=== PATIENT | female | born 1985 | race Caucasian/White ===

== ENCOUNTER 2020-06-18 07:18 | Outpatient (CLI) | payer BC, SELFPAY ==
[2020-06-18 07:33] LABS: Basophils Absolute Auto 0.04 K/mm3 (0.00-0.10); Basophils Percent Auto 0.5 % (0.0-1.0); Eosinophils Absolute Auto 0.09 K/mm3 (0.02-0.50); Eosinophils Percent Auto 1.1 % (1.0-6.0); Hematocrit 36.1 % (35.0-49.0); Hemoglobin 11.6 g/dL (12.0-15.0); Immature Granulocyte Absolute 0.03 K/mm3 (0.00-0.00); Immature Granulocyte Percent A 0.4 % (0.0-0.0); Lymphocytes Absolute Auto 2.44 K/mm3 (1.10-4.50); Lymphocytes Percent Auto 29.2 % (18.0-42.0); Mean Corpuscular HGB Conc 32.1 g/dL (32.0-36.0); Mean Corpuscular Hemoglobin 28.1 pg (27.0-31.0); Mean Corpuscular Volume 87.4 fL (78.0-102.0); Mean Platelet Volume 8.8 fl (9.2-11.8); Monocytes Absolute Auto 0.44 K/mm3 (0.10-0.90); Monocytes Percent Auto 5.3 % (2.0-11.0); Neutrophils Absolute Auto 5.3 K/mm3 (1.7-7.2); Neutrophils Percent Auto 63.5 % (50.0-70.0); Platelet Count Result 235 K/mm3 (150-420); Red Blood Count 4.13 M/mm3 (4.20-5.40); Red Cell Distribution Width 12.6 % (11.6-14.4); White Blood Count 8.4 K/mm3 (4.8-10.8)
[2020-06-18 09:10] LABS: Alanine Aminotransferase 17 U/L (14-59); Albumin Level 4.1 g/dL (3.4-5.0); Alkaline Phosphatase 73 U/L (46-116); Anion Gap 8 mmol/L (8-16); Aspartate Amino Transferase 11 U/L (15-37); Bilirubin,Total 0.3 mg/dL (0.00-1.00); Blood Urea Nitrogen 16 mg/dL (7-18); Carbon Dioxide 27 mmol/L (21-32); Chloride 104 mmol/L (98-108); Estimated Glomerular Filt Rate > 60; Ferritin 11 ng/mL (8-252); Folic Acid 9.7 ng/mL (8.6->20); Glucose 112 mg/dL (70-99); Iron 40 ug/dL (50-170); Osmolality Calculated 290 mOsm/kg (285-295); Potassium 3.5 mmol/L (3.5-5.1); Sodium 139 mmol/L (136-145); Total Protein 7.3 g/dL (6.4-8.2); Vitamin B12 460 pg/mL (193-986)
[2020-06-18 09:34] LABS: Thyroid Stimulating Hormone Reflex 2.49 u/IU/mL (0.36-3.74)
[2020-06-22 10:32] LABS: Vitamin B1 13 nmol/L (8-30)
[2020-06-22 12:28] LABS: Vitamin D 25 Hydroxy 31 ng/mL (30-100)
== END 2020-06-18 07:19 | disposition home or self-care (01) ==
LOC: CHSLAB 07:24
PROVIDERS: PCP Family Medicine
DX: R63.4 Abnormal weight loss (principal); R53.83 Other fatigue; L65.9 Nonscarring hair loss, unspecified; D64.9 Anemia, unspecified; K91.2 Postsurgical malabsorption, not elsewhere classified; Z98.84 Bariatric surgery status
CPT/HCPCS: 36415; 80053; 82306; 82607; 82728; 82746; 83540; 84425; 84443; 85025

== ENCOUNTER 2020-12-08 12:59 | Emergency (ER) | payer BC, SELFPAY ==
--- NOTE | ~2020-12-08 | CT_ITS ---
EXAMINATION: CT abdomen pelvis wo con DATE: 12/08/2020 16:37 INDICATION: Right flank pain, hematuria. Diarrhea, chills. TECHNIQUE: Computed tomography (CT) of the abdomen and pelvis was performed without intravenous contr ast. Automated exposure control and iterative reconstruction technique were employed. Exam dose: 255 .69 mGy-cm total exam DLP. COMPARISON: None. FINDINGS: The lung bases are clear of infiltrate or consolidation. Normal heart size. No pericardial or pleural effusion. Postoperative change of the stomach. Status post cholecystectomy. No hepatic, splenic, pancreatic, and adrenal or renal space-occupying mass lesion is evident on this limited noncontrast examination. No bile duct or pancreatic duct dilatation. No urinary tract calculus or hydroureteronephrosis is evident. Retroverted uterus. The urinary bladde r, uterus and adnexal areas are otherwise unremarkable. Normal caliber of the abdominal aorta. No intraperitoneal or retroperitoneal or pelvic mass lesion or adenopathy or ascites. Small fat-containing umbilical hernia. No bowel obstruction, bowel wall thickening, pneumatosis or intraperitoneal free air is detected. No inflammatory changes or abscess are identified. Included skeletal structures are unremarkable. IMPRESSION: Postoperative change of the stomach Status post cholecystectomy No urinary tract calculus or hydroureteronephrosis is detected Reviewed, dictated and finalized at [facility]. Reviewed, dictated and finalized at [facility]. [employer]
--- NOTE | ~2020-12-08 | XR_ITS ---
EXAMINATION: XR chest 2V DATE: 12/08/2020 14:26 INDICATION: Rest pain, tightness, fever and vomiting TECHNIQUE: frontal and lateral views of the chest were obtained. COMPARISON: Chest radiograph dated 04/14/2020 FINDINGS: The lungs remain clear with no focal airspace opacities, pulmonary edema, pleural effusion or pneumot horax. The cardiomediastinal silhouette is normal. Cholecystectomy clips in the right upper quadrant. Mild thoracic spondylosis. IMPRESSION: 1. No acute cardiopulmonary disease. Reviewed, dictated and finalized at [facility]. [facility] SPEAKING COACH
[2020-12-08 13:22] VITALS: BP 108/66; PULSE 103; RESP 18; TEMP 37.7; O2SAT 100
[2020-12-08 14:14] LABS: Basophils Absolute Auto 0.01 K/mm3 (0.00-0.10); Basophils Percent Auto 0.2 % (0.0-1.0); Hematocrit 34.7 % (35.0-49.0); Hemoglobin 11.6 g/dL (12.0-15.0); Immature Granulocyte Absolute 0.05 K/mm3 (0.00-0.00); Lymphocytes Absolute Auto 0.56 K/mm3 (1.10-4.50); Mean Corpuscular HGB Conc 33.4 g/dL (32.0-36.0); Mean Corpuscular Hemoglobin 28.9 pg (27.0-31.0); Mean Corpuscular Volume 86.5 fL (78.0-102.0); Mean Platelet Volume 9.3 fl (9.2-11.8); Monocytes Absolute Auto 0.23 K/mm3 (0.10-0.90); Monocytes Percent Auto 4.5 % (2.0-11.0); Neutrophils Absolute Auto 4.2 K/mm3 (1.7-7.2); Neutrophils Percent Auto 83.3 % (50.0-70.0); Platelet Count Result 133 K/mm3 (150-420); Red Blood Count 4.01 M/mm3 (4.20-5.40); Red Cell Distribution Width 13.6 % (11.6-14.4); White Blood Count 5.1 K/mm3 (4.8-10.8)
[2020-12-08 14:29] LABS: INR 1.1; Partial Thromboplastin Time 30.8 SEC (23.90-30.70); Prothrombin Time 11.4 Seconds (9.50-12.10)
[2020-12-08] MEDS: ONDANSETRON INJ 4 MG/2 ML VIAL IV PUSH (14:29)
[2020-12-08 14:30] VITALS: BP 110/64; PULSE 97; RESP 13; O2SAT 99
[2020-12-08] MEDS: SODIUM CHLORIDE 0.9% IV 1,000 ML 999 ML IV CONT (14:30)
[2020-12-08 14:35] LABS: Lactic Acid Reflex 1.4 mmol/L (0.4-2.0)
[2020-12-08 14:38] LABS: Alanine Aminotransferase 30 U/L (14-59); Albumin Level 3.3 g/dL (3.4-5.0); Alkaline Phosphatase 81 U/L (46-116); Anion Gap 10 mmol/L (8-16); Aspartate Amino Transferase 34 U/L (15-37); Bilirubin,Total 0.5 mg/dL (0.00-1.00); Blood Urea Nitrogen 12 mg/dL (7-18); Calcium 8.5 mg/dL (8.5-10.1); Carbon Dioxide 27 mmol/L (21-32); Chloride 99 mmol/L (98-108); Estimated Glomerular Filt Rate > 60; Glucose 99 mg/dL (70-99); Lipase 93 U/L (73-393); Osmolality Calculated 281 mOsm/kg (285-295); Potassium 4.1 mmol/L (3.5-5.1); Sodium 136 mmol/L (136-145); Total Protein 6.9 g/dL (6.4-8.2)
[2020-12-08 15:39] LABS: Add Urine Microscopic? YES; Appearance Urine Clear (Clear); Bilirubin Urine 2+ (Negative); Blood Urine 2+ (Negative); Color Urine Yellow (Yellow); Glucose Urine UA Negative (Negative); Ketones Urine 3+ (Negative); Leukocyte Esterase Ur Negative LEU/UL (Negative); Nitrate Urine Negative (Negative); Protein Urine 1+ (Negative); Specific Grav Ur 1.025 (1.010-1.020)
[2020-12-08 15:45] LABS: Bacteria Urine 4+ /hpf; Mucus Urine Moderate /lpf; Squamous Epithelial Cell Urine Few /hpf (Few); WBC Urine 0-3 /hpf (0-3)
[2020-12-08 15:48] VITALS: BP 122/72; PULSE 89; RESP 15; O2SAT 98
--- NOTE | 2020-12-08 16:12 | PC.NURSE ---
DR. BERMUDEZ CONTACTED AND SPOKE WITH ERP
--- NOTE | 2020-12-08 16:17 | ED.GENADULT ---
HPI - General Adult General Chief complaint: Unspecified Stated complaint: Body aches Time Seen by Provider: 12/08/20 13:45 Source: patient Limitations: no limitations History of Present Illness HPI narrative: 35-year-old woman comes in today complaining of fever, body aches, diarrhea, nausea, lightheadedness and weakness over the last 5 days. Patient states that 5 days ago she had an in office endometrial ablation. Her primary care doctor did a SARS screen and influenza screen yesterday, both of which were negative. an RNA test is pending. She denies cough, cold symptoms, vomiting, dysuria, hematuria or blood in her stools. She states that she has had some epigastric and chest pain as well as some right-sided abdominal pain. Her mother has a history of urolithiasis. She also states that she fell several days ago after her daughter knocked her over in sledding accident. Onset (ago): day(s) (5) Location: chest, back, abdomen, upper extremity and lower extremity Radiation: non-radiation Severity: moderate Quality: aching Pain Consistency: constant Relieving factors: none Exacerbating factors: movement Associated symptoms: diaphoresis, fever/chills, headaches, loss of appetite, malaise and weakness Related Data Home Medications Medication Instructions Recorded Confirmed fluoxetine 40 mg PO DAILY 12/08/20 12/08/20 Allergies Allergy/AdvReac Type Severity Reaction Status Date / Time No Known Allergies Allergy Unverified 06/28/11 14:19 Review of Systems Constitutional: Constitutional: Reports body ache(s), Reports chills, Reports fatigue, Reports fever(s), Reports headache(s), Reports lethargy and Reports malaise Eyes: Eyes: Denies change in vision and Denies photophobia ENT: Denies nasal congestion, Denies nasal discharge and Reports sore throat ( In the last day or so) Cardiovascular: Cardiovascular: Reports chest pain, Reports rapid heart rate and Denies leg edema Respiratory: Respiratory: Denies cough and Denies dyspnea Gastrointestinal: Gastrointestinal: Reports abdominal pain, Reports diarrhea, Reports nausea and Denies vomiting Genitourinary: Genitourinary: Denies hematuria, Denies nocturia, Denies dysuria and Denies urinary urgency Comments: dark colored vaginal bleeding since procedure 5 days ago. Musculoskeletal: Musculoskeletal: Reports back pain, Reports myalgias, Denies arthralgias and Denies joint swelling Integumentary/Breasts: Skin/Breast: Denies change in pigmentation, Denies erythema and Denies rash Neurologic: Denies syncope and Denies focal weakness Hematologic/Lymphatic: Hematologic/Lymphatic: Denies easy bleeding and Denies easy bruising Allergic/Immunologic: Allergic/Immunologic: Denies urticaria and Denies lip swelling [facility] Surgical History Surgical History History of endometrial ablation Social History Social History (Updated 12/08/20 @ 16:25 by Job Mukherjee MD) Smoking status: Never smoker Substance use: never Living arrangements: with family Exam Const: General: cooperative, healthy appearing, alert, awake, Physically active and acute distress moderate Orientation/consciousness: patient oriented x3 Limitations: no limitations HENMT: Head: normocephalic and atraumatic Ears: external ears normal, TM's normal bilaterally and EAC's normal General nose exam: Normal nares present Face and sinus: normal facial exam Mouth: Yes Normal oral and palatal mucosa present Throat: posterior oropharynx normal Eyes: Conjunctivae: conjunctivae normal Pupils: Equal, round and reactive pupils present EOM: EOMs intact bilaterally Resp: Effort & Inspection: normal respiratory effort Auscultation: clear to auscultation bilaterally, no rales, no rhonchi and no wheezes Cardio: Rate: regular rate Rhythm: regular rhythm Heart sounds: no murmurs GI: GI Palp: Yes abdominal tenderness (Diffuse, mild. R>L) Auscultation
[2020-12-08 16:18] LABS: Pregnancy On Board Control Positive; Urine Pregnancy Test Negative
[2020-12-08 17:00] VITALS: BP 106/61; PULSE 91; RESP 14; TEMP 37.7; O2SAT 100
== END 2020-12-08 17:13 | disposition home or self-care (01) ==
PROVIDERS: Emergency Provider Emergency Medicine; PCP Nurse Practitioner Psychiatric/Mental Health
DX: B34.9 Viral infection, unspecified (principal); Z90.49 Acquired absence of other specified parts of digestive tract; Z98.890 Other specified postprocedural states
CPT/HCPCS: 36415; 71046; 74176; 80053; 81001; 81025; 83605; 83690; 85025; 85610; 85730; 86140; 87040; 87077; 87186; 96361; 96374; 99283; 99284; J2405; J7030

== ENCOUNTER 2020-12-11 20:03 | Emergency (ER) | payer BC, SELFPAY ==
[2020-12-11] VITALS (11 sets, daily range): BP systolic 102–128; BP diastolic 72–86; PULSE 81; RESP 16; TEMP 36.7; O2SAT 98–100
--- NOTE | 2020-12-11 20:27 | ED.RECABL ---
HPI - Recheck/Abnormal Lab/Rx General Chief Complaint: Recheck/Abnormal Lab/Rx Stated Complaint: revisit Time Seen by Provider: 12/11/20 20:27 Source: patient Mode of arrival: ambulatory Limitations: no limitations History of Present Illness HPI narrative: 35-year-old woman returns to the emergency department today because of abnormal blood cultures. Patient was seen 3 days ago for fever, abdominal pain and vomiting that started approximately 4 days after endometrial ablation. Blood cultures grew E coli from both bottles. Patient states that she had some low-grade fevers yesterday but has gradually been feeling better since her visit 3 days ago. She still has some night sweats and episodes of dizziness but has had no vomiting and has been eating and drinking well. She complains of persistent pain in her right side. complaint: abnormal lab Initial visit (ago): day(s) (3) Initial visit for: other Returns today for: called because of abnormal lab/test Symptoms since prior visit: no new symptoms and improved Context: called for positive culture result Associated symptoms: chills, nausea and abdominal pain Treatments prior to arrival: other (NSAID) Related Data Home Medications Medication Instructions Recorded Confirmed fluoxetine 40 mg PO DAILY 12/08/20 12/11/20 Allergies Allergy/AdvReac Type Severity Reaction Status Date / Time No Known Allergies Allergy Unverified 06/28/11 14:19 Review of Systems Constitutional: Constitutional: Reports chills, Denies fever(s) and Denies weakness ENT: Denies nasal congestion and Denies sore throat Cardiovascular: Cardiovascular: Denies chest pain and Denies radiating jaw, neck or arm pain Respiratory: Respiratory: Denies cough and Denies dyspnea Gastrointestinal: Gastrointestinal: Reports abdominal pain, Denies diarrhea, Reports nausea and Denies vomiting Genitourinary: Genitourinary: Denies hematuria, Denies nocturia and Denies dysuria Musculoskeletal: Musculoskeletal: Denies arthralgias and Denies joint swelling Integumentary/Breasts: Skin/Breast: Denies pruritus, Denies erythema and Denies rash Neurologic: Reports dizziness and Denies syncope [facility] Surgical History Surgical History History of endometrial ablation Social History Social History Smoking status: Never smoker Substance use: never Exam Const: General: healthy appearing, no acute distress and alert Orientation/consciousness: patient oriented x3 HENMT: Face and sinus: normal facial exam Mouth: Yes moist mucous membranes Throat: posterior oropharynx normal Eyes: Conjunctivae: conjunctivae normal EOM: EOMs intact bilaterally Resp: Effort & Inspection: normal respiratory effort and not labored Auscultation: clear to auscultation bilaterally, no rales, no rhonchi and no wheezes Cardio: Rate: regular rate Rhythm: regular rhythm Heart sounds: no murmurs GI: GI Palp: Yes Soft to palpation and Yes Tenderness to palpation present (GI) ( right flank) Skin: General skin exam: normal color, no jaundice and no pallor Rashes: no rashes Neuro: General: patient oriented x3, moves all extremities, no focal motor deficits and CN's II-XI intact bilaterally Speech: normal speech Gait exam (Neuro): Normal gait present Extrem: General: normal to inspection and no clubbing, cyanosis or edema Psych: Appearance: grossly normal and well kempt Mental Status: mental status grossly normal Affect: normal affect Attitude: cooperative Thought content: Yes Normal thought content present Course Vital Signs Vital signs: Vital Signs Temperature 36.7 C 12/11/20 20:03 Pulse Rate 81 12/11/20 20:03 Respiratory Rate 16 12/11/20 20:03 Blood Pressure 128/86 12/11/20 20:03 Pulse Oximetry 100 12/11/20 20:03 Temperature 36.7 C 12/11/20 20:03 Pulse Rate 81 12/11/20 20:03 Respirat
[2020-12-11 21:35] LABS: Hematocrit 32.3 % (35.0-49.0); Hemoglobin 10.5 g/dL (12.0-15.0); Mean Corpuscular HGB Conc 32.5 g/dL (32.0-36.0); Mean Corpuscular Hemoglobin 28.1 pg (27.0-31.0); Mean Corpuscular Volume 86.4 fL (78.0-102.0); Mean Platelet Volume 9.7 fl (9.2-11.8); Platelet Count Result 230 K/mm3 (150-420); Red Blood Count 3.74 M/mm3 (4.20-5.40); Red Cell Distribution Width 13.5 % (11.6-14.4); White Blood Count 6.9 K/mm3 (4.8-10.8)
[2020-12-11 21:43] LABS: Alanine Aminotransferase 34 U/L (14-59); Albumin Level 3.2 g/dL (3.4-5.0); Alkaline Phosphatase 76 U/L (46-116); Anion Gap 6 mmol/L (8-16); Aspartate Amino Transferase 35 U/L (15-37); Bilirubin,Total 0.3 mg/dL (0.00-1.00); Blood Urea Nitrogen 11 mg/dL (7-18); Calcium 8.5 mg/dL (8.5-10.1); Carbon Dioxide 29 mmol/L (21-32); Chloride 102 mmol/L (98-108); Estimated CRCL calculation 122 ml/min; Estimated Glomerular Filt Rate > 60; Glucose 86 mg/dL (70-99); Osmolality Calculated 282 mOsm/kg (285-295); Sodium 137 mmol/L (136-145); Total Protein 6.7 g/dL (6.4-8.2)
[2020-12-11 21:48] LABS: Lactic Acid Reflex 0.7 mmol/L (0.4-2.0)
[2020-12-11] MEDS: CIPROFLOXACIN 500 MG TAB PO (22:15)
[2020-12-11 22:40] LABS: Atypical Lymphocytes Present
[2020-12-11 22:41] LABS: Band Neutrophils Percent 0 % (0-6); Basophils Percent Manual 0 % (0-1); Eosinophils Absolute Manual 0.13 K/mm3 (0.02-0.5); Eosinophils Percent Manual 2 % (1-6); Lymphocytes Absolute Manual 3.17 K/mm3 (1.1-4.5); Lymphocytes Percent Manual 46 % (18-44); Monocytes Percent Manual 3 % (3-9); Neutrophils Absolute Manual 3.38 K/mm3 (1.7-7.2); Neutrophils Percent Manual 49 % (46-73); Platelet Estimate Adequate (Adequate)
[2020-12-11 22:42] LABS: Total Cells Counted 100
== END 2020-12-11 22:20 | disposition home or self-care (01) ==
PROVIDERS: Emergency Provider Emergency Medicine; PCP Nurse Practitioner Psychiatric/Mental Health
DX: N12 Tubulo-interstitial nephritis, not specified as acute or chronic (principal); A49.8 Other bacterial infections of unspecified site; R78.81 Bacteremia
CPT/HCPCS: 36415; 80053; 83605; 85025; 87040; 87086; 87088; 99283; A9270

== ENCOUNTER 2021-11-09 11:10 | Outpatient (CLI) | payer BC, SELFPAY ==
[2021-11-09 11:56] LABS: SARS-CoV-2 Ag Positive (Negative)
== END 2021-11-09 11:11 | disposition home or self-care (01) ==
LOC: CHSLAB 11:13
PROVIDERS: PCP Family Medicine; Visit Provider Physician Assistant
DX: U07.1 COVID-19 (principal); G44.83 Primary cough headache
CPT/HCPCS: 87426; C9803

== ENCOUNTER 2023-07-26 13:21 | Outpatient (CLI) | payer OTHER, SELFPAY | END 2023-07-26 13:22 | disposition home or self-care (01) | LOC: ANHSURGERY 13:31 | PROVIDERS: Visit Provider Obstetrics & Gynecology | DX: N94.6 Dysmenorrhea, unspecified (principal); Z01.818 Encounter for other preprocedural examination | CPT/HCPCS: 36415; 86850; 86900; 86901 ==

== ENCOUNTER 2023-08-01 01:44 | Day surgery (SDC) | payer OTHER, SELFPAY ==
[2023-07-19 14:23] VITALS: BMI 28.0
--- NOTE | 2023-07-19 14:30 | PC.NURSE ---
Report to the Outpatient Waiting Room, entrance under the green pavilion located off [facility], at time _1000_ on date _[id number]_. Planned Procedure Time: _1200_. Time changes happen often and if your time is changed the preop area will call you the afternoon before. - You and your visitor will be asked to self-screen and do not enter if you have any COVID symptoms. - A mask is optional within the hospital at this time. Patients may have clear liquids (water, carbonated beverages, clear teas, apple juice) until 3 hours prior to surgery with a maximum of 20 ounces. - No food from midnight until time of surgery Take the following medications with a SIP of water the morning of surgery: ___Celexa DO NOT STOP ANY OF YOUR OTHER PRESCRIPTION MEDICATIONS PRIOR TO SURGERY ?EXCEPT THE FOLLOWING Medications to discontinue per physician _Ismael, take no more until after surgery. Multivitamin stop 12-27-2022. Please no make-up, nail sao tomean, hairspray, perfume, deodorant, or body powder the day of surgery. No jewelry (including any body piercings) or valuables the day of surgery, leave them at home. Please take a shower or bath the night before, or the morning of, surgery with an antibacterial soap. Wear comfortable, loose fitting clothing. - Jewelry must be removed prior to entering the operating room. Rings and piercings that are not removed may be cut off. - The hospital will not accept responsibility for valuables. - Please leave all valuables, including medications, at home the day of surgery. If you are going home after surgery, a licensed otr refrigerated cdl truck driver must drive you home. - NO public transportation without another adult if you receive anesthesia. - We recommend that an adult stay with you for 24 hours following discharge. - We also recommend that you do not drive, make important decision, drink alcoholic beverages, or take any drugs that were not prescribed by your health care provider for at least 24 hours after your discharge time. Follow any additional instructions given to you from your surgeon. If you or anyone in your household have experienced Covid symptoms in the past week, please notify your surgeon or the nurse liaison at the phone number below for possible testing. Telephone instructions given to _Patient__and asked if any additional questions and then verbalized understanding. Patient advised to call surgeon office or pre surgery nurse liaison [phone] if any additional questions.
[2023-08-01] VITALS (9 sets, daily range): BP systolic 97–115; BP diastolic 53–76; PULSE 73–97; RESP 14–20; TEMP 36.1–36.5; O2SAT 95–100
[2023-08-01] MEDS: KETOROLAC 15 MG/ML VIAL (*BKC) IV PUSH (10:30)
[2023-08-01] MEDS: ACETAMINOPHEN 500 MG TABLET 1000 MG PO (10:30)
[2023-08-01] MEDS: LACTATED RINGERS 1,000 ML 30 ML IV CONT ×2 (10:30→13:19)
--- NOTE | 2023-08-01 10:57 | P.PNAN_ITS ---
Anes - Initial Pre Proc Eval Procedure: Operation Date: 08/01/23 12:00 Proposed Procedures p Total Vaginal Hysterectomy with Bilateral Salpingectomy - Ted Avalos MD Date/Time: 08/01/23 10:57 Surgeon: Ted Avalos MD Pre Op Diagnosis: dysmenorrhea, dyspurenia, fibroids,heavy bleeding Patient Data Age: 38 Gender: F Height: 1.65 m Weight: 76.4 kg Allergies Allergy/AdvReac Type Severity Reaction Status Date / Time No Known Allergies Allergy Verified 08/01/23 10:46 Home Medications Medication Instructions Recorded Confirmed Type citalopram 20 mg tablet (Celexa) 20 mg PO DAILY 07/19/23 08/01/23 History multivitamin 1 tablet PO DAILY 07/19/23 08/01/23 History omeprazole 40 mg capsule,delayed 40 mg PO DAILY 07/19/23 08/01/23 History release semaglutide (weight loss) 2.4 2.4 mg subcut WEEKLY 07/19/23 07/19/23 History mg/0.75 mL subcutaneous pen injector (Wegovy) Patient hx anesthesia problems: none Family hx anesthesia problems: none Results Review: All pre-operative results and documents have been reviewed as part of the pre- operative evaluation. [facility] Past Medical History Medical History (Updated 08/01/23 @ 10:58 by Ramon Roe MD) Esophageal stricture Gastritis GERD (gastroesophageal reflux disease) Surgical History Surgical History (Updated 08/01/23 @ 10:58 by Ramon Roe MD) History of endometrial ablation S/P gastric sleeve procedure Social History Social History Smoking status: Never smoker Substance use: never Living arrangements: with family Spiritual care concerns: No Anes - Eval Final PreProcedure Day of Procedure 08/01/23 10:57 Patient weight: overweight Heart: regular rate and rhythm Lungs: clear to auscultation Airway: Mallampati scale class II Neurological: alert and oriented Last oral intake: >/= 8 hours ASA classification: II Emergent: no Anesthetic plan: proceed Anesthesia type and monitoring: general ETT and standard monitoring Results Review: All pre-operative results and documents have been reviewed as part of the pre- operative evaluation. Informed Consent: The patient's anesthetic plan and its attendant risks and benefits were discussed with the patient/family/POA. Questions were solicited and answers provided to the satisfaction of the patient/family/POA.
[2023-08-01] MEDS: SCOPOLAMINE 1.5 MG PATCH TRANSDERM (11:00)
--- NOTE | 2023-08-01 11:57 | PM.IMHP ---
H&P: HPI History of Present Illness Date/Time: 08/01/23 11:57 Chief Complaint: Heavy, painful periods. Narrative: 37 y/o who has had an endometrial ablation, but menses are now lasting 7-10 days each, with heavy flow. She is here for definitive management with hysterectomy. Review of Systems Review of Systems: All systems reviewed & are unremarkable except as noted in HPI and below PMFSH Past Medical History Medical History Esophageal stricture Gastritis GERD (gastroesophageal reflux disease) Surgical History Surgical History History of endometrial ablation S/P gastric sleeve procedure Social History Social History Smoking status: Never smoker Substance use: never Living arrangements: with family Spiritual care concerns: No Meds Home Medications and Allergies Home Medications Medication Instructions Recorded Confirmed Type citalopram 20 mg tablet (Celexa) 20 mg PO DAILY 07/19/23 08/01/23 History multivitamin 1 tablet PO DAILY 07/19/23 08/01/23 History omeprazole 40 mg capsule,delayed 40 mg PO DAILY 07/19/23 08/01/23 History release semaglutide (weight loss) 2.4 2.4 mg subcut WEEKLY 07/19/23 07/19/23 History mg/0.75 mL subcutaneous pen injector (Wegovy) Allergies Allergy/AdvReac Type Severity Reaction Status Date / Time No Known Allergies Allergy Verified 08/01/23 10:46 Vital Signs Vital Signs - 24 hr 08/01/23 10:48 Temperature 36.3 C L Pulse Rate 73 Respiratory Rate 16 Blood Pressure 115/76 Pulse Oximetry 100 Oxygen Delivery Room Air Exam Const: Orientation/consciousness: patient oriented x3 Other: Well-developed, well-nourished female in no acute distress. Neck: Thyroid: thyroid normal Lymphatic: no lymphadenopathy noted (in neck, axilla or inguinal nodes) Resp: Effort & Inspection: normal respiratory effort Auscultation: clear to auscultation bilaterally Cardio: Rate: regular rate Rhythm: regular rhythm Heart sounds: S1 normal heart sound present and S2 normal heart sound present GI: Other: ABD: Soft, nontender, nondistended. No guarding or rebound tenderness. No hepatosplenomegaly. : General: Yes no CVA tenderness Other: External genitalia: normal female hair distribution, without lesion. Urethral meatus: no lesion, non prolapsed. Bladder: no mass, nontender Vagina: well-estrogenized, without lesion or discharge. No cystocele or rectocele. Cervix: no lesion or discharge. Uterus: small, anteverted, freely mobile, nontender Adnexa: no mass or tenderness. Anus/perineum: no lesions, nontender Back/Spine/Pelvis: Back: no CVA tenderness Skin: General skin exam: normal color and no rashes or lesions noted Neuro: General: patient oriented x3 Extrem: Other: Extremities: nontender with no edema Psych: Mental Status: mental status grossly normal Affect: normal affect Assessment and Plan Assessment and plan (1) Menometrorrhagia: Code(s): N92.1 - Excessive and frequent menstruation with irregular cycle Status: Acute Assessment and Plan: A: Menometrorrhagia with dysmenorrhea. P: We have reviewed medical as well as surgical management options. She prefers the latter. Specifically, I have offered her a total vaginal hysterectomy with bilateral salpingectomies. She understands hysterectomy will render her permanently sterile. She understands risks of surgery to include risks of anesthesia, risks of pain, infection, bleeding, blood products, thromboembolic phenomena and damage to adjacent structures such as bowel, bladder, ureters, blood vessels and nerves. She understands all these risks and elects to proceed with surgery. (2) Dysmenorrhea: Code(s): N94.6 - Dysmenorrhea, unspecified Status: Acute
--- NOTE | 2023-08-01 12:01 | WPDHPUPDATE1 ---
History and Physical Update Update Date/Time: 08/01/23 12:01 History and Physical has been reviewed, including an updated exam of the patient. There are NO changes in the patient's condition. Risks, benefits, and alternatives have been discussed and questions answered. Patient agrees to proceed with procedure.
[2023-08-01] MEDS: ceFAZolin 2 GM/D5W 50 ML 2 GM/50 ML BAG IVPB (12:04)
--- NOTE | 2023-08-01 13:08 | P.OP_ITS ---
Procedure Note - Detailed Date of Procedure 08/01/23 Pre-op Diagnosis Menometrorrhagia Dysmenorrhea Post-op Diagnosis Same Procedure Performed Total vaginal hysterectomy with bilateral salpingectomies Surgeon Ted Avalos MD Anesthesia General Findings Normal-appearing uterus, tubes and ovaries Description of Procedure The patient was taken to the operating room where she was prepared and draped in the usual sterile fashion in the dorsal lithotomy position. The bladder was drained with red rubber catheter. A weighted speculum was placed posteriorly. A Mary retractor was used anteriorly. The cervix was grasped with a single- tooth tenaculum. Ten mL of sterile saline was infiltrated circumferentially around the cervix to aid in tissue plane dissection. The cervix was circumscribed using electrocautery. The peritoneal cavity was entered sharply posteriorly and a long weighted speculum was placed. The uterosacral and cardinal ligaments on both sides were then clamped, transected and suture ligated using 0 Vicryl. These were tagged for later identification. The bladder was dissected off the cervix and lower uterine segment and reflected away. The LigaSure device was then used to clamp, ligate and transect the broad ligaments bilaterally. Finally, the utero-ovarian ligament, round ligament and tube complexes on both sides were able to be clamped, transected and suture ligated using 0 Vicryl. The specimen was passed off to be sent to pathology. The bilateral fallopian tubes were then dissected, clamped, ligated and transected using the LigaSure device and passed off the field. The pedicles were inspected and found to be hemostatic. The vaginal cuff angles were then transfixed to the ipsilateral cardinal uterosacral ligaments for support. The vaginal cuff was reapproximated using 0 Vicryl in a running, locked fashion. Hemostasis was excellent. A Ceja catheter was placed. Vaginal packing soaked in Premarin cream was placed. Sponge, lap, needle and instrument counts were correct. The patient was awakened and taken to the recovery room in stable condition. I was present and scrubbed for the entire procedure. Implants None Estimated Blood Loss 50 Drains Yes (Ceja) Packing Yes (vaginal) Pathology Yes (Uterus, cervix, bilateral Fallopian tubes) Complications None Condition Stable Disposition PACU
[2023-08-01] MEDS: fentaNYL CITRATE INJ (*CRX) 100 MCG/2 ML VIAL 25 MCG IV PUSH ×8 (13:29→14:13)
--- NOTE | 2023-08-01 14:30 | PC.NURSE ---
This patient, Gena Smith, was received from PACU on 08/01/23 at 1430. Patient/family oriented to unit policies and routines.
[2023-08-01] MEDS: DEXTROSE 5%/0.45% SOD CHL 1,000 ML 125 ML IV CONT (14:57)
[2023-08-01] MEDS: KETOROLAC 30 MG/ML VIAL (*BKC) IV PUSH ×2 (14:57→21:45)
[2023-08-01] MEDS: HYDROcodone/acetaminophen (*CRX) 5-325 MG TABLET 1 TAB PO (16:00)
[2023-08-01] MEDS: HYDROcodone/acetaminophen (*CRX) 10-325 MG TABLET 1 TAB PO ×2 (18:38→21:45)
[2023-08-01] MEDS: DOCUSATE SODIUM 100 MG CAPSULE PO (18:43)
[2023-08-01] MEDS: ENOXAPARIN 40 MG/0.4 ML SYRINGE SUB-Q (21:46)
[2023-08-02 03:30] VITALS: BP 86/56; PULSE 91; RESP 16; TEMP 36.3
[2023-08-02] MEDS: HYDROcodone/acetaminophen (*CRX) 5-325 MG TABLET 1 TAB PO (03:33)
[2023-08-02 05:17] LABS: Basophils Percent Auto 0.2 % (0.2-1.2); Eosinophils Percent Auto 0.1 % (0-4.4); Hematocrit 35.1 % (37.0-47.0); Hemoglobin 11.2 g/dL (12.0-15.0); Immature Granulocyte Absolute 0.06 K/mm3 (0.00-0.031); Immature Granulocyte Percent A 0.4 % (0-0.5); Lymphocytes Absolute Auto 2.09 K/mm3 (0.9-3.2); Mean Corpuscular HGB Conc 31.9 g/dl (32-36); Mean Corpuscular Hemoglobin 29.7 pg (26-34); Mean Corpuscular Volume 93.1 fl (80-100); Mean Platelet Volume 9.8 fl (7.4-10.4); Monocytes Absolute Auto 0.8 K/mm3 (0.1-0.6); Monocytes Percent Auto 5.8 % (2.6-8.5); Neutrophils Absolute Auto 10.9 K/mm3 (1.3-6.7); Neutrophils Percent Auto 78.5 % (45.5-73.1); Platelet Count Result 267 k/mm3 (150-375); Red Blood Count 3.77 M/mm3 (4.2-5.4); Red Cell Distribution Width 12.3 % (11.5-14.5); White Blood Count 13.9 K/mm3 (4.5-10.0)
[2023-08-02] MEDS: HYDROcodone/acetaminophen (*CRX) 10-325 MG TABLET 1 TAB PO (07:36)
[2023-08-02] MEDS: DOCUSATE SODIUM 100 MG CAPSULE PO (07:38)
[2023-08-02 08:35] VITALS: BP 95/56; PULSE 80; RESP 16; TEMP 36.9; O2SAT 98
--- NOTE | 2023-08-02 11:42 | PM.GYNPNOP ---
INSTITUTION DIRECTOR - A/P Assessment and plan (1) Dysmenorrhea: Code(s): N94.6 - Dysmenorrhea, unspecified Status: Acute Assessment and Plan: A: POD#1, doing well. P: Home to f/u 2 weeks. (2) Menometrorrhagia: Code(s): N92.1 - Excessive and frequent menstruation with irregular cycle Status: Acute Postoperative Procedures: Procedures Operation Date: 08/01/23 12:00 Actual Procedure Side Surgeon p Total Vaginal Hysterectomy with Bilateral Salpingectomy Bilateral Ted Avalos MD Time Spent With Patient Time: Total time spent is greater than 50% in coordination of care (as documented) at patient's floor/unit and/or counseling patient: Time with patient: less than 15 minutes INSTITUTION DIRECTOR- PN:Subj Post-Op Subjective Date/time seen: 08/02/23 11:42 Interval history: Pain OK. Tolerating diet. Voiding. Would like to go home. Exam Narrative: AVSS I/O OK ABD soft, nontender. Incisions c/d/i. EXT nontender INSTITUTION DIRECTOR - PN: Obj Data Vital Signs Vital Signs: Vital Signs - 24 hr 08/01/23 13:19 08/01/23 13:45 08/01/23 13:55 Temperature 36.2 C L Pulse Rate 97 89 Respiratory Rate 20 18 Blood Pressure 97/53 L 105/62 Pulse Oximetry 100 100 Oxygen Delivery Simple Face Mask Simple Face Mask Room Air Oxygen Flow Rate 6 6 08/01/23 14:00 08/01/23 14:15 08/01/23 14:25 Temperature 36.1 C L Pulse Rate 86 92 90 Respiratory Rate 16 16 14 Blood Pressure 99/61 L 103/65 98/58 L Pulse Oximetry 96 95 97 Oxygen Delivery Room Air Room Air Room Air Oxygen Flow Rate 08/01/23 13:30 08/01/23 14:35 08/01/23 20:00 Temperature 36.5 C 36.4 C L Pulse Rate 89 89 86 Respiratory Rate 20 16 18 Blood Pressure 103/65 115/65 105/60 Pulse Oximetry 100 99 Oxygen Delivery Simple Face Mask Oxygen Flow Rate 6 08/02/23 03:30 08/02/23 08:35 Temperature 36.3 C L 36.9 C Pulse Rate 91 80 Respiratory Rate 16 16 Blood Pressure 86/56 L 95/56 L Pulse Oximetry 98 Oxygen Delivery Oxygen Flow Rate Intake/Output Intake/Output: Intake & Output 07/30/23 07/31/23 08/01/23 08/02/23 23:59 23:59 23:59 23:59 Intake Total 2425 250 Output Total 340 1100 Balance 3207 -347 Meds/Results Medications: Active Medications Generic Name Dose Route Start Last Admin Trade Name Freq PRN Reason Stop Dose Admin Hydrocodone Bitart/Acetaminophen 1 tab 08/01/23 14:26 08/02/23 03:33 Hydrocodone/Acetaminophen (*Crx) 5-325 Mg Tablet PO 1 tab Q3H PRN Administration Pain Rated 5 or Less Hydrocodone Bitart/Acetaminophen 1 tab 08/01/23 14:26 08/02/23 07:36 Hydrocodone/Acetaminophen (*Crx) 10-325 Mg Tablet PO 1 tab Q3H PRN Administration Pain Rated 6 or Greater Citalopram Hydrobromide 20 mg 08/02/23 09:00 Citalopram Hydrobromide 20 Mg Tablet PO DAILY [facility] Docusate Sodium 100 mg 08/01/23 17:00 08/02/23 07:38 Docusate Sodium 100 Mg Capsule PO 100 mg BID DERRICK Administration Enoxaparin Sodium 40 mg 08/01/23 21:00 08/01/23 21:46 Enoxaparin 40 Mg/0.4 Ml Syringe SUB-Q 40 mg DAILY DERRICK Administration Ibuprofen 600 mg 08/01/23 14:26 Ibuprofen 600 Mg Tablet PO Q6H PRN Cramping Ketorolac Tromethamine 30 mg 08/01/23 14:26 08/01/23 21:45 Ketorolac 30 Mg/Ml Vial (*Bkc) IV PUSH 08/06/23 14:25 30 mg Q6H PRN Administration Pain Rated 4-6 Morphine Sulfate 4 mg 08/01/23 14:26 Morphine Sulfate (*Crx) 4 Mg/Ml Inj IV PUSH Q4H PRN Severe breakthrough pain Multivitamins Therapeutic 1 tablet 08/02/23 09:00 Multivitamins Therapeutic Tab (*Bkc) PO DAILY DERRICK Naloxone HCl 0.1 mg 08/01/23 14:26 Naloxone Hcl 0.4 Mg/Ml Vial IV PUSH Q2M PRN Respiratory rate less than 10 Ondansetron HCl 4 mg 08/01/23 14:26 Ondansetron Inj 4 Mg/2 Ml Vial IV PUSH Q6H PRN Nausea And Vomiting Pantoprazole Sodium 40 mg 08/02/23 09:00 Pantoprazole 40 Mg Tablet PO QAM DERRICK
--- NOTE | 2023-08-02 11:43 | PM.DS ---
DS: Admitting Diagnosis Discharge Date 08/02/23 Admitting Diagnosis Dysmenorrhea Menometrorrhagia DS: Discharge Diagnosis Discharge Diagnosis (1) Dysmenorrhea: Code(s): N94.6 - Dysmenorrhea, unspecified Status: Acute (2) Menometrorrhagia: Code(s): N92.1 - Excessive and frequent menstruation with irregular cycle Status: Acute DS: Summary Hospital Course Hospital Course: Admitted on the date of scheduled surgery. She underwent total vaginal hysterectomy with bilateral salpingectomies. She did well postoperatively and went home on POD1. Time Spent with Patient Time attestation: Total time spent providing and/or coordinating discharge services: DS: Data Data Completed and Pending Pending studies at discharge: Pending at discharge 08/01/23 12:36 Surgical [PTH] Routine Labs on day of discharge: Labs from last 24 hours 08/02/23 03:35 WBC 13.9 H RBC 3.77 L Hgb 11.2 L Hct 35.1 L MCV 93.1 MCH 29.7 MCHC 31.9 L RDW 12.3 Plt Count 267 MPV 9.8 Immature Gran % (Auto) 0.4 Neut % (Auto) 78.5 H Lymph % (Auto) 15.0 L [place] % (Auto) 5.8 Eos % (Auto) 0.1 Baso % (Auto) 0.2 Lymph # (Auto) 2.09 [place] # (Auto) 0.8 H Eos # (Auto) 0.0 Baso # (Auto) 0.0 Abs Immat Gran (auto) 0.06 H Absolute Neuts (auto) 10.9 H Absolute Nucleated RBC 0.0 Nucleated RBC % 0.0 Discharge Plan Discharge Patient Disposition: Home, Self-Care Discharge Instructions: Remove the Scopolamine patch that was placed behind your ear in 72 hours or less. Wash your hands after touching. Nothing in the vagina for six weeks. Call or return if temperature above 100.4? F, increased abdominal pain, increased vaginal bleeding or any new problems. Stand Alone Forms: General Discharge Instructions Follow-up/Referrals: Ted Avalos MD [Physician] - 2 Weeks Discharge Medications: New hydrocodone-acetaminophen 5-325 mg tablet 1 - 2 tablet PO Q6H PRN (Reason: pain) Qty: 30 0RF Continued multivitamin Tablet 1 tablet PO DAILY omeprazole 40 mg Capsule,Delayed Release(Dr/Ec) 40 mg PO DAILY citalopram [Celexa] 20 mg Tablet 20 mg PO DAILY Wegovy 2.4 mg/0.75 mL Pen Injector 2.4 mg SUBCUT WEEKLY Rx Instructions: Saturdays
== END 2023-08-02 12:11 | disposition home or self-care (01) ==
LOC: ANHSURGERY 12:58 → ANHOB2 08-02 05:39
PROVIDERS: Visit Provider Obstetrics & Gynecology
PROC: (CPT 58260; principal; 2023-08-01 12:00)
DX: N92.1 Excessive and frequent menstruation with irregular cycle (principal); N94.6 Dysmenorrhea, unspecified; N72 Inflammatory disease of cervix uteri; N87.9 Dysplasia of cervix uteri, unspecified; N88.8 Other specified noninflammatory disorders of cervix uteri; K21.9 Gastro-esophageal reflux disease without esophagitis; Z98.84 Bariatric surgery status; Z79.85 Long-term (current) use of injectable non-insulin antidiabetic drugs
CPT/HCPCS: 58262; 36415; 85025; 88307; 99199; A9270; J0690; J1100; J1650; J1885; J2250; J2405; J2704; J3010; J7030; J7120